=== PATIENT | female | born 1940 | race Caucasian/White ===

== ENCOUNTER 2017-01-30 13:00 | Inpatient (IN) | payer OTHER, MEDICARE ==
[~2017-01-30] VITALS: Ht 157.5 cm; Wt 63.8 kg
[2017-02-04] MEDS ORDERED: LISI10TA3 PO (12:47)
[2017-02-04] MEDS ORDERED: LOVA40TA PO (12:47)
[2017-02-04] MEDS ORDERED: FERR1TAB36 PO (12:47)
[2017-02-04] MEDS ORDERED: OMEP20TA PO (12:47)
[2017-02-04] MEDS ORDERED: ALEN1TAB48 PO (12:48)
[2017-02-05] MEDS ORDERED: BUPIVACAINE LIPOSOME PF 1.3% 20 ML VIAL ONE (09:27)
[2017-02-05 10:58] VITALS: BP 130/64; PULSE 73; RESP 16; TEMP 98.1; O2SAT 99
[2017-02-05] MEDS ORDERED: ceFAZolin 2 GM PREMIX 50 ML ONE (11:18)
[2017-02-05 11:27] LABS: AUTOMATED NEUTROPHIL # 5.1 TH/MM3 (1.8-7.7); BASOPHIL % 0.3 % (0.0-2.0); EOSINOPHIL # 0.1 TH/MM3 (0-0.4); EOSINOPHIL % 0.9 % (0.0-4.0); HEMATOCRIT 32.3 % (35.0-46.0); LYMPH % 17.9 % (9.0-44.0); LYMPHOCYTE # 1.2 TH/MM3 (1.0-4.8); MEAN CELL VOLUME 74.7 FL (80.0-100.0); MEAN CORPUSCULAR HEMOGLOBIN 24.5 PG (27.0-34.0); MEAN CORPUSCULAR HGB CONC 32.7 % (32.0-36.0); MONO % 7.1 % (0.0-8.0); NEUT % 73.8 % (16.0-70.0); PLATELET COUNT 209 TH/MM3 (150-450); RED BLOOD COUNT 4.32 MIL/MM3 (4.00-5.30); RED CELL DISTRIBUTION WIDTH 13.2 % (11.6-17.2); WHITE BLOOD COUNT 6.9 TH/MM3 (4.0-11.0)
[2017-02-05 11:30] LABS: HEMO FLAGS AUTO DIFF
[2017-02-05 11:35] LABS: APTT (PATIENT) 24.5 SEC (24.3-30.1); INTERNATIONAL NORMALIZED RATIO 0.9 RATIO; PROTHROMBIN TIME - PATIENT 10.1 SEC (9.8-11.6)
[2017-02-05 11:46] LABS: BICARBONATE 24.5 MEQ/L (21.0-32.0)
[2017-02-05] MEDS ORDERED: NEOSTIGMINE METHYLSULFATE 10 MG/10 ML VIAL IV PUSH ONE (12:00)
[2017-02-05] MEDS ORDERED: ONDANSETRON HCL 4 MG/2 ML VIAL IV PUSH ONE (12:00)
[2017-02-05] MEDS ORDERED: NORMOSOL R INJ 1,000 ML IV ONE (12:00)
[2017-02-05] MEDS ORDERED: PROPOFOL 200 MG/20 ML AMP IV ONE (12:00)
[2017-02-05] MEDS ORDERED: SODIUM CHLORID 0.9% 500 ML INJ 500 ML IV ONE (12:00)
[2017-02-05] MEDS ORDERED: LACTATED RINGER'S 1000 ML INJ 2,000 ML IV ONE (12:00)
[2017-02-05] MEDS ORDERED: PHENYLEPH/NS 1000 MCG/10 ML SYR IV ONE (12:00)
[2017-02-05 12:06] LABS: OVALOCYTES 1+ (NORMAL); SCAN/DIFF AUTO DIFF CONFIRMED
[2017-02-05] MEDS ORDERED: fentaNYL CITRATE 250 MCG/5 ML AMP ONE ×2 (12:13→17:46)
[2017-02-05] MEDS ORDERED: FAMOTIDINE 20 MG/2 ML VIAL ONE (12:13)
[2017-02-05] MEDS ORDERED: MIDAZOLAM HCL 2 MG/2 ML VIAL ONE (12:13)
[2017-02-05] MEDS ORDERED: ACETAMINOPHEN 1000 MG/100 ML VIAL IV ONE (12:13)
[2017-02-05] MEDS ORDERED: BUPIVACAINE/EPINEPHRINE 0.25% PF 30 ML VIAL ONE (12:50)
--- NOTE | 2017-02-05 13:22 | EKG ---
Date Performed: 02/05/2017 Time Performed: 11:04:02 PTAGE: 77 years EKG: Sinus rhythm LEFT BUNDLE BRANCH BLOCK ABNORMAL ECG NO PREVIOUS TRACING DOCTOR: Mahin Blanchard Interpretating Date/Time 02/05/2017 13:20:26
[2017-02-05] MEDS: SODIUM CHLOR 0.9% 1000 ML INJ 1,000 ML IV SCH (18:51)
--- NOTE | 2017-02-05 18:51 | HHI.PR ---
Immediate Post Op Note Procedure Date: Feb 05, 2017 Pre Op Diagnosis: (1) Gastric cancer Post Op Diagnosis: (1) Gastric cancer Surgeon: Pablo Amezcua Porcelain Buildup Assistant(s): Cole Love MD Procedure: Robotic Assisted subtotal gastrectomy with Lilibeth en Y reconstruction Findings: large gastric malignancy with negative margins on intraoperative consultation Complications: none Specimen(s) removed: subtotal gastrectomy Estimated blood loss: 100ml Anesthesia: General, Regional Block Drains: RUSH IVF Patient to: PACU Patient Condition: Good Pablo Amezcua MD Feb 05, 2017 18:51
[2017-02-05] MEDS ORDERED: diphenhydrAMINE HCL 50 MG/ML VIAL IV PRN (19:00)
[2017-02-05] MEDS ORDERED: NALOXONE HCL 0.4 MG/ML AMP IV PRN ×2 (19:00)
[2017-02-05] MEDS ORDERED: SODIUM CHLORIDE 0.9% FLUSH 10 ML FLUSH IV FLUSH PRN (19:00)
[2017-02-05] MEDS ORDERED: MORPHINE SULFATE 30 MG/30 ML PCA IV SCH (19:00)
[2017-02-05] MEDS ORDERED: BENZOCAINE 20% ORAL SPR 60 ML CAN MT PRN (19:00)
[2017-02-05] MEDS ORDERED: ONDANSETRON HCL 4 MG/2 ML VIAL IV PRN (19:00)
[2017-02-05] MEDS ORDERED: Post-op Orders (for Pharmacy) MISC XX ONE (19:00)
[2017-02-05] MEDS: ACETAMINOPHEN 1000 MG/100 ML VIAL IV SCH (19:00)
[2017-02-05] MEDS ORDERED: *MEPERIDINE 25 MG INJ VIAL PERIprocedural Use ONLY ONE (19:22)
[2017-02-05] MEDS ORDERED: DO NOT ADM ANY ANTICOAGULANT DRUGS PRN (19:30)
[2017-02-05] MEDS: PANTOPRAZOLE SODIUM 40 MG VIAL IV SCH (19:57)
[2017-02-05] MEDS: metroNIDAZOLE 500 MG INJ 100 ML IV SCH (20:00)
[2017-02-05] MEDS: SODIUM CHLORIDE 0.9% FLUSH 10 ML FLUSH IV FLUSH SCH (21:00)
[2017-02-06] VITALS (8 sets, daily range): BP systolic 115–145; BP diastolic 58–72; PULSE 67–95; RESP 16–20; TEMP 95.5–97.5; O2SAT 98–100
[2017-02-06] MEDS: ACETAMINOPHEN 1000 MG/100 ML VIAL IV SCH ×4 (01:00→17:57)
[2017-02-06] MEDS: metroNIDAZOLE 500 MG INJ 100 ML IV SCH ×2 (04:00→11:33)
[2017-02-06] MEDS: SODIUM CHLOR 0.9% 1000 ML INJ 1,000 ML IV SCH ×2 (04:51→13:30)
[2017-02-06 05:28] LABS: AUTOMATED NEUTROPHIL # 5.7 TH/MM3 (1.8-7.7); BASOPHIL % 0.1 % (0.0-2.0); EOSINOPHIL % 0.1 % (0.0-4.0); HEMATOCRIT 28.3 % (35.0-46.0); LYMPH % 9.3 % (9.0-44.0); LYMPHOCYTE # 0.6 TH/MM3 (1.0-4.8); MEAN CELL VOLUME 74.8 FL (80.0-100.0); MEAN CORPUSCULAR HEMOGLOBIN 23.5 PG (27.0-34.0); MEAN CORPUSCULAR HGB CONC 31.5 % (32.0-36.0); MONO % 6.2 % (0.0-8.0); NEUT % 84.3 % (16.0-70.0); PLATELET COUNT 153 TH/MM3 (150-450); RED BLOOD COUNT 3.79 MIL/MM3 (4.00-5.30); WHITE BLOOD COUNT 6.7 TH/MM3 (4.0-11.0)
[2017-02-06 05:38] LABS: HEMO FLAGS AUTO DIFF
[2017-02-06 05:43] LABS: BICARBONATE 24.5 MEQ/L (21.0-32.0); POTASSIUM 4.4 MEQ/L (3.5-5.1)
[2017-02-06] MEDS: PCA - TOTAL MG MORPHINE DELIVERED PER SHIFT SCH ×3 (06:00→21:13)
[2017-02-06 07:33] LABS: OVALOCYTES 1+ (NORMAL); PLATELET ESTIMATE SMEAR NORMAL (NORMAL); PLATELET MORPHOLOGY NORMAL (NORMAL); SCAN/DIFF AUTO DIFF CONFIRMED
[2017-02-06] MEDS: SODIUM CHLORIDE 0.9% FLUSH 10 ML FLUSH IV FLUSH SCH ×2 (07:54→21:13)
--- NOTE | 2017-02-06 12:07 | HHI.PR ---
Subjective Subjective Notes Up to chair Reports minimal pain Objective Vitals/I&O Vital Signs Date Time Temp Pulse Resp B/P Pulse Ox O2 Delivery O2 Flow Rate FiO2 02/06/17 08:00 97.3 68 16 126/61 99 02/05/17 22:00 Nasal Cannula 2 Labs Laboratory Tests Test 02/06/17 04:44 White Blood Count 6.7 Red Blood Count 3.79 Hemoglobin 8.9 Hematocrit 28.3 Mean Corpuscular Volume 74.8 Mean Corpuscular Hemoglobin 23.5 Mean Corpuscular Hemoglobin 31.5 Concent Red Cell Distribution Width 13.0 Platelet Count 153 Mean Platelet Volume 8.0 Neutrophils (%) (Auto) 84.3 Lymphocytes (%) (Auto) 9.3 Monocytes (%) (Auto) 6.2 Eosinophils (%) (Auto) 0.1 Basophils (%) (Auto) 0.1 Neutrophils # (Auto) 5.7 Lymphocytes # (Auto) 0.6 Monocytes # (Auto) 0.4 Eosinophils # (Auto) 0.0 Basophils # (Auto) 0.0 CBC Comment AUTO DIFF Differential Comment AUTO DIFF CONFIRMED Platelet Estimate NORMAL Platelet Morphology Comment NORMAL Ovalocytes 1+ Sodium Level 140 Potassium Level 4.4 Chloride Level 108 Carbon Dioxide Level 24.5 Anion Gap 8 Blood Urea Nitrogen 11 Creatinine 0.74 Estimat Glomerular Filtration 76 Rate Random Glucose 142 Calcium Level 7.9 Cardiovascular: Regular Lungs: Clear Abdomen: Other (lap sites c/d/i; abdomen soft; minimal tenderness with palpation ) Extremities: No edema A/P Assessment and Plan 77 year old female POD1 robotic assisted subtotal gastrectomy with Lilibeth-en-Y reconstruction -NPO -Continue IVF -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 I reviewed and agree with the findings presented. I attest that I had a [id number] encounter with the patient on the same day, and personally performed and documented my assessment and findings in the medical record. Abdominal exam stable, tender to palpation with postoperative tenderness only Shabnam Hanley Feb 06, 2017 12:07 Pablo Amezcua MD March 12, 2017 11:08
[2017-02-06] MEDS: ENOXAPARIN SODIUM 40 MG/0.4 ML SYRINGE SQ SCH (17:07)
[2017-02-06] MEDS: PANTOPRAZOLE SODIUM 40 MG VIAL IV SCH (21:13)
[2017-02-06] MEDS: PHENOL 1.4% SOLN 180 ML BTL OROPHARYNG PRN (21:38)
[2017-02-07] VITALS (8 sets, daily range): BP systolic 129–146; BP diastolic 58–65; PULSE 76–89; RESP 16–17; TEMP 96–97.1; O2SAT 93–100
[2017-02-07] MEDS: SODIUM CHLOR 0.9% 1000 ML INJ 1,000 ML IV SCH ×3 (01:08→19:47)
[2017-02-07] MEDS: ACETAMINOPHEN 1000 MG/100 ML VIAL IV SCH ×3 (01:08→11:33)
[2017-02-07] MEDS: PHENOL 1.4% SOLN 180 ML BTL OROPHARYNG PRN ×2 (01:11→08:31)
[2017-02-07] MEDS: PCA - TOTAL MG MORPHINE DELIVERED PER SHIFT SCH ×4 (05:36→19:49)
[2017-02-07] MEDS: SODIUM CHLORIDE 0.9% FLUSH 10 ML FLUSH IV FLUSH SCH ×2 (08:29→19:47)
--- NOTE | 2017-02-07 10:19 | HHI.PR ---
Subjective Subjective Notes Resting in bed C/o sore throat Minimal abdominal pain Objective Vitals/I&O Vital Signs Date Time Temp Pulse Resp B/P Pulse Ox O2 Delivery O2 Flow Rate FiO2 02/07/17 08:34 94 Room Air 02/07/17 08:00 96.4 77 17 136/65 02/06/17 16:16 2.00 Cardiovascular: Regular Lungs: Clear Abdomen: Other (lap sites c/d/i with Dermabond in place; abdomen soft; minimally tender ) Extremities: No edema Narrative Exam NGT in place to LIWS A/P Assessment and Plan 77 year old female POD2 robotic assisted subtotal gastrectomy with Lilibeth-en-Y reconstruction -NPO -Continue IVF -DEAN OF ADMISSIONS for pain control -Encouraged mobilization---currently OOB -Continue NGT to LIWS -Monitor RUSH output -Plan for Upper GI tomorrow -IS Attending Statement The exam, history, and the medical decision-making described in the above note were completed with the assistance of the mid-level provider. I reviewed and agree with the findings presented. I attest that I had a [id number] encounter with the patient on the same day, and personally performed and documented my assessment and findings in the medical record. Abdominal exam stable, tender to palpation (postop tenderness) doing great overall postop d/w family Shabnam Hanley Feb 07, 2017 10:19 Pablo Amezcua MD March 12, 2017 11:11
[2017-02-07] MEDS: ENOXAPARIN SODIUM 40 MG/0.4 ML SYRINGE SQ SCH (17:29)
[2017-02-07] MEDS: PANTOPRAZOLE SODIUM 40 MG VIAL IV SCH (19:47)
[2017-02-08] VITALS (7 sets, daily range): BP systolic 135–172; BP diastolic 66–73; PULSE 84–101; RESP 17–20; TEMP 95.9–98.7; O2SAT 95–97
[2017-02-08] MEDS: PCA - TOTAL MG MORPHINE DELIVERED PER SHIFT SCH ×3 (05:13→21:04)
[2017-02-08] MEDS ORDERED: METOPROLOL TARTRATE 25 MG TAB PO PRN (08:30)
[2017-02-08] MEDS ORDERED: CHLORHEXIDINE GLUCONATE 2 % 1 PACK (2 CLOTHS) TOPICAL PRN (08:30)
[2017-02-08] MEDS ORDERED: POVIDONE IODINE 5% (ANTISEPSIS KIT) 4 APPLICATIONS EACH NARE PRN (08:30)
[2017-02-08] MEDS ORDERED: INSULIN HUMAN REGULAR 1,000 UNITS/10 ML VIAL SQ PRN (08:30)
[2017-02-08] MEDS ORDERED: LACTATED RINGER'S 1000 ML IV PRN (08:30)
[2017-02-08] MEDS ORDERED: SODIUM CHLORID 0.9% 500 ML IV PRN (08:30)
[2017-02-08] MEDS: SODIUM CHLOR 0.9% 1000 ML INJ 1,000 ML IV SCH ×2 (08:32→17:41)
[2017-02-08] MEDS: SODIUM CHLORIDE 0.9% FLUSH 10 ML FLUSH IV FLUSH SCH ×2 (08:32→21:00)
[2017-02-08] MEDS ORDERED: ENALAPRILAT 1.25 MG/ML VIAL IV PUSH PRN (09:00)
[2017-02-08] MEDS ORDERED: DIATRIZOATE MEGLUM/DIATRIZOATE SOD 120 ML BTL (for RAD DIAG) NG ONE (09:45)
--- NOTE | 2017-02-08 11:09 | HHI.PR ---
Subjective Subjective Notes Resting in bed Eager to try clear liquids---understands she needs to sip on them Objective Vitals/I&O Vital Signs Date Time Temp Pulse Resp B/P Pulse Ox O2 Delivery O2 Flow Rate FiO2 02/08/17 08:00 95.9 95 18 172/73 97 02/08/17 07:45 Room Air 02/07/17 21:40 21 02/06/17 16:16 2.00 Cardiovascular: Regular Lungs: Clear Abdomen: Other (incisions sites c/d/i; non tender; non distended ) Extremities: No edema Narrative Exam NGT in place to LIWS A/P Assessment and Plan 77 year old female POD3 robotic assisted subtotal gastrectomy with Lilibeth-en-Y reconstruction -Esophagram negative for any leaks -Starts sips of clear liquids -DC NGT -Continue IVF -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 I reviewed and agree with the findings presented. I attest that I had a [id number] encounter with the patient on the same day, and personally performed and documented my assessment and findings in the medical record. Abdominal exam stable, tender to palpation without rebound tenderness or peritonitis RUSH with minimal output, clear, will DC drain Shabnam Hanley Feb 08, 2017 11:09 Pablo Amezcua MD March 12, 2017 11:13
--- NOTE | 2017-02-08 12:04 | RADRPT ---
EXAM DATE/TIME: 02/08/2017 09:38 [facility] COMPARISON: No previous studies available for comparison. INDICATIONS : S/P robotic assisted gastrectomy with Lilibeth-en-y. Treatment for obstructing gastric cancer. FLUORO TIME: 1.7 minutes IMAGE COUNT: 11 CONTRAST: 1. MD Reyes MEDICAL HISTORY : Gastric cancer. Acid reflux. SURGICAL HISTORY : Tonsillectomy. Hysterectomy. Gastrectomy with lilibeth-en-y. ENCOUNTER: Initial ACUITY: 4 - 6 days PAIN SCORE: 7/10 LOCATION: Bilateral Abdomen. FINDINGS: The nozzle cement sprayer helper film demonstrates a nasogastric tube in place as well as a second catheter projected over t he abdomen. The patient is status post cholecystectomy. Gas and stool is noted segments of the colon. The Gastrografin upper GI series was performed through the nasogastric tube. There are postoperative changes involving the stomach status post subtotal gastrectomy. The anastomosis is patent with no antoni dence of obstruction or leakage. There was prompt passage of contrast into the proximal small bowel. CONCLUSION: Expected postop change with no evidence of obstruction or leakage. Will Park MD on February 08, 2017 at 12:00 Board Certified Radiologist. This report was verified electronically.
--- NOTE | 2017-02-08 13:49 | MP ---
cc: ANAHI CHIANG DATE OF SURGERY: 02/05/2017 PREOPERATIVE DIAGNOSIS: Gastric antral adenocarcinoma. POSTOPERATIVE DIAGNOSIS Gastric antral adenocarcinoma. PROCEDURE 1. Robotic-assisted, subtotal gastrectomy with Lilibeth-en-Y reconstruction. 2. Extensive lysis of adhesions. ANESTHESIA General and regional tap block. ATTENDING PHYSICIAN: Anahi Chiang MD. ASSISTANTS: Cole Love MD. FINDINGS: A large bulky tumor in the distal antrum just prior to the pylorus with intraoperative consultation with pathology negative proximal distal margins and extensive adhesions due to previous open surgery from cholecystectomy. ESTIMATED BLOOD LOSS: 100 cc. COMPLICATIONS None INDICATIONS FOR PROCEDURE The patient is a 77-year-old female who in 2016 was diagnosed with a small gastric adenocarcinoma. The patient underwent chemotherapy and was told she was not a surgical candidate at that time. Unfortunately the patient had progression of her disease diagnosed by PET scan on esophagogastroduodenoscopy. The patient is now referred for surgical evaluation and after evaluation was found to be acceptable candidate for gastric surgery. I discussed with the patient about the risks, benefits and alternatives to curative versus palliative gastrectomy and well as robotic and open techniques. The patient did elect undergo robotic assisted. Partial versus total gastrectomy for treatment of her malignancy. This tenth alternatives were discussed with the patient and and all questions were answered their satisfaction. PROCEDURE After informed consent was obtained, the patient taken to the operating placed in supine position, placed under general endotracheal anesthesia. The patient's abdomen was prepped and draped in sterile fashion. Time-out was preformed. The patients abdomen was entered through Norris direct entry type technique below the umbilicus. The midline with a 10/12 camera port. We placed a laparoscopic scope into the abdomen and insufflated the abdomen. There is no evidence of any complication from her entry. There are many dense adhesions in the right upper quadrant. We then placed. No robotic ports, these were a robotic 10/12 and the left side of the abdomen for arm one as well as a 10/12 assistance port on the left side of the abdomen and two, 8 mm robotic ports on the right side of the abdomen. All under direct visualization laparoscope. We were then able to dock to [employer] [place] robotic system without difficulty. We initially turned attention towards the lysis of adhesions. We had lysed extensive adhesions from the patient's previous cholecystectomy. This was done bluntly as well as with the vessel sealer in arm one. We took also the hook cautery and dissection to dissect free the patients first and second portion of duodenum that was adhered up into the gallbladder fossa. Once we had an extensively lysed the adhesions and were able to mobilize the distal stomach and pylorus adequately we turned our attention towards our dissection. We opened the gastrocolic ligament with a vessel sealer and an open the window in the epi gastrohepatic ligament that was distal to the left gastric artery. We divided this just proximal to the incisura and on the greater curvature across the stomach moving the majority of the stomach from the cardia and the fundus and the more proximal part of the body of stomach. We used a green load on the robotic stapler. We then continued mobilized the stomach distally. We further mobilize the first portion of duodenum and divided the right gastroduodenal artery with the vessel sealer and divided the first portion of duodenum distal to the pylorus with the blue load on the robotic stapler. The stomach was then removed from the abdomen with the assistance port which at that point have been widened it into an Efra 5-mm working port. This was done through a muscle splitting incision on the left lower quadrant over the rectus musculature. This was marked stitch proximal an intraoperative consultation did return later in the case, we had, negative proximal distal margins. We turned our attention towards reconstruction. We able to find a very thin window retrocolic that brought us the shortest distance between the gastric remnant and a Lilibeth limb, as a antecolic approach due to large redundant colon and transverse colon would make this a very long limb and was concerned about blood supply and function for that technique. Made a small window in the transverse mesocolon distal to the middle colic vessels proximal to the splenic flexure and we then divided the ileum approximately 40 cm past ligament Treitz and passed up our alimentary limb through this mesenteric defect. This gave us really no tension between the gastric remnant and our limb as they sat nearly next to each other just without any instrumentation. We then placed a [id number] silk stitch at the tip of the R[place]en and secured this to the posterior portion of the gastric remnant. We made an enterotomy and then gastrotomy on the remnant more distally and placed a blue load on the robotic stapler and performed a retrogastric and retrocolic reconstruction. We had good staple lines with no bleeding. No tension. We closed the staple defect, with two-layer 3-0 interrupted silk sutures. We then passed the NG tube into the gastric remnant and this bridal in place. The we then followed this distal into the inferior to the transverse mesocolon and performed our JJ anastomosis with using three blue loads on the robotic stapler. This had no tension and laid naturally. At this point and time we had no significant mesenteric defect as we had minimal mesenteric dissection and we turned our attention to towards closure. We did irrigate the abdomen and all suctioning was clear. We placed a 19-Serbian round Varinder drain and a retrogastric as well as near the duodenal stump coming out the most lateral port. We undocked the Robot and then removed all ports. We closed the working port with a two-layer, a running 0 Vicryl suture followed by Monocryl on skin. We also closed the camera ports and the 10 mm robotic ports for the Robotic stapler. 8 mm robotic ports were closed the fascia. All skin openings were closed with Monocryl and Dermabond. A drain was placed with drain bulb suction and sutured in place with nylon suture. The patient was discontinued from anesthesia taken to the PACU in stable condition. The patient tolerated the procedure well. No apparent complications. All counts were correct, I was present and scrubbed for the entire procedure. MD TRUNG Fernandez/candis /10:10 AM /1:09 PM
[2017-02-08] MEDS: ENOXAPARIN SODIUM 40 MG/0.4 ML SYRINGE SQ SCH (17:42)
[2017-02-08] MEDS: PANTOPRAZOLE SODIUM 40 MG VIAL IV SCH (21:04)
[2017-02-09] VITALS: BP 147/71; PULSE 82; RESP 17; TEMP 98; O2SAT 97
[2017-02-09] MEDS: SODIUM CHLOR 0.9% 1000 ML INJ 1,000 ML IV SCH ×3 (02:51→21:28)
[2017-02-09 04:00] VITALS: BP 131/69; PULSE 79; RESP 17; TEMP 97.4; O2SAT 97
[2017-02-09] MEDS: PCA - TOTAL MG MORPHINE DELIVERED PER SHIFT SCH ×3 (04:12→21:27)
[2017-02-09 08:00] VITALS: BP 157/69; PULSE 102; RESP 20; TEMP 96.7; O2SAT 96
[2017-02-09 12:00] VITALS: BP 125/59; PULSE 90; RESP 18; TEMP 97.5; O2SAT 98
[2017-02-09 16:00] VITALS: BP 121/58; PULSE 98; RESP 18; TEMP 97.8; O2SAT 99
[2017-02-09] MEDS: ENOXAPARIN SODIUM 40 MG/0.4 ML SYRINGE SQ SCH (17:48)
[2017-02-09 20:00] VITALS: BP 154/67; PULSE 86; RESP 20; TEMP 97.6; O2SAT 96
--- NOTE | 2017-02-09 20:54 | HHI.PR ---
Subjective Subjective Notes feels well, tolerating clears Objective Vitals/I&O Vital Signs Date Time Temp Pulse Resp B/P Pulse Ox O2 Delivery O2 Flow Rate FiO2 02/09/17 16:00 97.8 98 18 121/58 99 02/08/17 10:27 21 02/08/17 07:45 Room Air 02/06/17 16:16 2.00 Cardiovascular: Regular Lungs: Clear Abdomen: Non-distended, Post-op tenderness Extremities: No edema A/P Assessment and Plan 77yo female s/p robotic gastrectomy, doing well. increase diet to soft-puree. Pablo Amezcua MD Feb 09, 2017 20:54
[2017-02-09] MEDS: SODIUM CHLORIDE 0.9% FLUSH 10 ML FLUSH IV FLUSH SCH ×2 (21:00→21:29)
[2017-02-09] MEDS: PANTOPRAZOLE SODIUM 40 MG VIAL IV SCH (21:27)
[2017-02-10] VITALS: BP 133/86; PULSE 72; RESP 19; TEMP 99.2; O2SAT 96
[2017-02-10] MEDS: PCA - TOTAL MG MORPHINE DELIVERED PER SHIFT SCH (05:18)
[2017-02-10 08:00] VITALS: BP 139/68; PULSE 88; RESP 16; TEMP 97.2; O2SAT 97
[2017-02-10] MEDS: SODIUM CHLOR 0.9% 1000 ML INJ 1,000 ML IV SCH ×2 (08:51→18:51)
[2017-02-10] MEDS: SODIUM CHLORIDE 0.9% FLUSH 10 ML FLUSH IV FLUSH SCH ×2 (09:00→21:04)
[2017-02-10] MEDS ORDERED: ACETAMINOPHEN/HYDROcodone 325 MG/5 MG TAB PO PRN (11:00)
--- NOTE | 2017-02-10 11:01 | HHI.PR ---
Subjective Subjective Notes tolerating soft diet Objective Vitals/I&O Vital Signs Date Time Temp Pulse Resp B/P Pulse Ox O2 Delivery O2 Flow Rate FiO2 02/10/17 08:00 97.2 88 16 139/68 97 02/09/17 20:00 Room Air 02/08/17 10:27 21 02/06/17 16:16 2.00 Cardiovascular: Regular Lungs: Clear Abdomen: Non-distended, Non-tender Extremities: No edema, Perfused A/P Assessment and Plan 77yo female s/p robotic gastrectomy, doing well. tolerating soft diet pain ok, DC HEAD COOK RUSH out OOB DC home soon Pablo Amezcua MD Feb 10, 2017 11:01
[2017-02-10 12:00] VITALS: BP 143/65; PULSE 84; RESP 14; TEMP 97.6; O2SAT 96
[2017-02-10 16:00] VITALS: BP_SYST 128; BP_SYST 156; BP_DIAS 68; BP_DIAS 73; PULSE 68; PULSE 97; RESP 14; RESP 18; TEMP 97.4; O2SAT 96; O2SAT 98
[2017-02-10] MEDS: ENOXAPARIN SODIUM 40 MG/0.4 ML SYRINGE SQ SCH (17:25)
[2017-02-10 20:46] VITALS: BP 161/69; PULSE 82; RESP 17; TEMP 98.1; O2SAT 94
[2017-02-10] MEDS: PANTOPRAZOLE SODIUM 40 MG VIAL IV SCH (21:04)
[2017-02-11] VITALS: BP 122/61; PULSE 84; RESP 20; TEMP 97.4; O2SAT 96
[2017-02-11] MEDS: SODIUM CHLOR 0.9% 1000 ML INJ 1,000 ML IV SCH (03:36)
[2017-02-11 08:00] VITALS: BP 139/67; PULSE 92; RESP 20; TEMP 96.5; O2SAT 95
[2017-02-11] MEDS: SODIUM CHLORIDE 0.9% FLUSH 10 ML FLUSH IV FLUSH SCH (08:38)
[2017-02-11] MEDS ORDERED: LISINOPRIL 10 MG TAB PO SCH (09:00)
[2017-02-11] MEDS ORDERED: PRAVASTATIN SOD 40 MG TAB PO SCH (09:00)
[2017-02-11 12:00] VITALS: BP 128/58; PULSE 94; RESP 20; TEMP 97.4; O2SAT 100
[2017-02-11] MEDS ORDERED: NORC5TAB PO (13:39)
--- NOTE | 2017-03-12 10:59 | HHI.DS ---
Discharge Summary Admission Date Feb 05, 2017 at 10:08 Discharge Date: February 11, 2017 Admitting Diagnosis Brief History 77 year old female s/p robotic gastrectomy. PE at Discharge Up to chair Resp: CTAB Cardio: RRR Abd: incision c/d/i; RUSH removed Hospital Course This is a 77 year old female s/p robotic gastrectomy. Her diet was advanced as tolerated to a soft diet. Her pain was controlled using oral pain medications. She was able to ambulate independently. The pathology reports was reviewed with the patient and her prior to discharge. She will follow up in the office in about 1-2 weeks. Pt Condition on Discharge: Good Discharge Disposition: Discharge Home Discharge Instructions DIET: Follow Instructions for: Soft Diet Activities you can perform: Regular-No Restrictions Other Activity Instructions: okay to shower; pat incisions dry Shabnam Hanley March 12, 2017 10:59
== END 2017-02-11 14:32 | disposition home or self-care (01) | DRG 328 ==
LOC: HSDI 02-05 10:08 → N07B 02-05 22:16
PROVIDERS: ADMIT Surgery; ATTEND Surgery
PROC: 0D164ZA Bypass Stomach to Jejunum, Percutaneous Endoscopic Approach (ICD-10-PCS; 2017-02-05)
PROC: 07BC4ZX Excision of Pelvis Lymphatic, Percutaneous Endoscopic Approach, Diagnostic (ICD-10-PCS; 2017-02-05)
PROC: 8E0W4CZ Robotic Assisted Procedure of Trunk Region, Percutaneous Endoscopic Approach (ICD-10-PCS; 2017-02-05)
PROC: 3E0T3CZ (ICD-10-PCS; 2017-02-05)
PROC: 0DB64ZZ Excision of Stomach, Percutaneous Endoscopic Approach (ICD-10-PCS; principal; 2017-02-05 12:55)
DX: C16.3 Malignant neoplasm of pyloric antrum (principal); Z90.49 Acquired absence of other specified parts of digestive tract; Z92.21 Personal history of antineoplastic chemotherapy
CPT/HCPCS: 74240; 76937; 80048; 85025; 85610; 85730; 86850; 86900; 86901; 86920; 88305; 88307; 88309; 88312; 88331; 88342; 88360; 93005; 94150; C9113; C9290; J0131; J0690; J1200; J1650; J2175; J2250; J2270; J2370; J2405; J2710; J3010; J7030; J7040; J7120; Q9963